=== PATIENT | female | born 1980 ===

== ENCOUNTER 2021-04-06 10:54 | Emergency (ER) | payer OTHER, SELFPAY ==
--- NOTE | ~2021-04-06 | XR_ITS ---
EXAMINATION: XR ankle RT min 3V, XR foot RT min 3V EXAM DATE: 04/06/2021 13:20 INDICATION: Slipped, right foot and ankle pain. Initial encounter. TECHNIQUE: Right foot dorsoplantar, lateral and oblique projections obtained and reviewed. Right ank le frontal, lateral and oblique projections obtained and reviewed. There is no prior study for dotty metzger. FINDINGS: Right metatarsal bones unremarkable. The right ankle mortise appears intact. There are n o acute fractures or dislocations identified. There is no subcutaneous gas. The soft tissue is unre markable. There are no radiopaque foreign bodies. IMPRESSION: No acute osseous findings. Reviewed, dictated and finalized at location B. IMPRESSION: No acute osseous findings. IMPRESSION: No acute osseous findings.
[2021-04-06 11:05] VITALS: BP 141/73; PULSE 81; RESP 14; TEMP 37.3; O2SAT 98
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
[2021-04-06 13:59] VITALS: BP 150/86; PULSE 84; RESP 16; TEMP 36.6; O2SAT 100
== END 2021-04-06 14:00 | disposition home or self-care (01) ==
PROVIDERS: Emergency Provider Emergency Medicine; PCP Family Medicine
DX: M25.571 Pain in right ankle and joints of right foot (principal)
CPT/HCPCS: 73610; 73630; 99283